=== PATIENT | male | born 1995 | race African-American/Black ===

== ENCOUNTER 2022-03-21 12:19 | Emergency (ER) | payer BC, MEDICAID, SELFPAY ==
[2022-03-21 12:33] VITALS: BP 131/66; PULSE 82; RESP 20; TEMP 36.4; O2SAT 100
[2022-03-21 13:02] LABS: Appearance Urine Clear (Clear); Bilirubin Urine Negative (Negative); Blood Urine Negative (Negative); Color Urine Yellow (Yellow); Glucose Urine UA Negative (Negative); Ketones Urine Negative (Negative); Leukocyte Esterase Ur Negative LEU/UL (Negative); Nitrate Urine Negative (Negative); Protein Urine Negative (Negative); Urobilinogen Urine 0.2 mg/dL (<2.0)
[2022-03-21 13:14] LABS: Add Urine Microscopic? NO
[2022-03-21] MEDS: cefTRIAXone 1 GM VIAL 0.5 GM IM (13:32)
--- NOTE | 2022-03-21 14:01 | ED.MALEGU ---
HPI - Male Genitourinary General Chief complaint: Urogenital-Male Stated complaint: pelvic pain Time Seen by Provider: 03/21/22 12:49 History of Present Illness HPI Narrative: Patient is a 26-year-old male who presents ER with discomfort at the tip of his penis. Ongoing for 3 days. He has had multiple sexual partners over the last couple weeks and has not worn protection. No discharge from tip of his penis. No new rashes. He is concerned he may have a sexual transmitted infection. Related Data Allergies Allergy/AdvReac Type Severity Reaction Status Date / Time No Known Allergies Allergy Verified 03/21/22 12:48 Review of Systems Constitutional: Constitutional: Denies chills and Denies fever(s) Gastrointestinal: Gastrointestinal: Denies abdominal pain, Denies diarrhea, Denies nausea and Denies vomiting Genitourinary: Genitourinary: Denies hematuria, Denies genital lesions, Reports dysuria, Denies penile discharge, Denies testicular pain and Denies urinary frequency PMFSH Past Medical History Medical History (Updated 03/21/22 @ 14:05 by eKvan Houser MD) Healthy adult male Surgical History Surgical History (Updated 03/21/22 @ 14:05 by Kevan Houser MD) No pertinent past surgical history Social History Social History (Updated 03/21/22 @ 14:05 by Kevan Houser MD) Smoking status: Never smoker Exam Narrative: GENERAL: Well-appearing, well-nourished, and in no acute distress. HEAD: Normocephalic, atraumatic. : Normal external genitalia without urethral discharge or lesions along the penile shaft. No inguinal hernia. Testicles nontender and without swelling. Normal scrotum EXTREMITIES: Normal range of motion. No edema. NEURO: Alert and oriented x3. PSYCH: Normal mood and affect. Course Course Emergency Course: Discussed treatment plan and patient verbalized understanding. Vital Signs Vital signs: Vital Signs Temperature 97.5 F L 03/21/22 12:33 Pulse Rate 82 03/21/22 12:33 Respiratory Rate 20 03/21/22 12:33 Blood Pressure 131/66 03/21/22 12:33 Pulse Oximetry 100 03/21/22 12:33 Oxygen Delivery Room Air 03/21/22 12:33 Temperature 97.5 F L 03/21/22 12:33 Pulse Rate 82 03/21/22 12:33 Respiratory Rate 20 03/21/22 12:33 Blood Pressure 131/66 03/21/22 12:33 Pulse Oximetry 100 03/21/22 12:33 Oxygen Delivery Room Air 03/21/22 12:33 MDM - Male Genitourinary Lab Data Labs: Lab Results 03/21/22 03/21/22 Range/Units 12:51 13:36 Urine Color Yellow (Yellow) Urine Appearance Clear (Clear) Urine pH 7.0 (5.0-9.0) Ur Specific [place] 1.020 (1.001-1.035) Urine Protein Negative (Negative) mg/dL Urine Glucose (UA) Negative (Negative) mg/dL Urine Ketones Negative (Negative) mg/dL Ur Blood (Man) Negative (Negative) Urine Nitrate Negative (Negative) Urine Bilirubin Negative (Negative) Urine Urobilinogen 0.2 (<2.0) mg/dL Leukocyte Esterase Rfl Negative (Negative) BATOOL/UL C.trachomatis RNA (TMA) Pending N.gonorrhoeae RNA (TMA) Pending Discharge Plan Discharge Clinical Impression: Exposure to STD Patient Disposition: Still a Patient Condition: Stable Instructions: Safe Sex Practices (ED) Additional Instructions: You are being treated presumptively treated for chlamydia and gonorrhea despite not having a positive test. Your test results should come back in the next couple of days and you can access them through your patient portal. Take the full course of antibiotics. Abstain from sex until completing the antibiotics. If you do find it necessary to have sex while on your antibiotics please wear a condom. Prescriptions: New doxycycline monohydrate 100 mg capsule 100 mg PO BID Qty: 14 0RF metronidazole 500 mg tablet 500 mg PO Q12H Qty: 14 0RF Follow-up/Referrals: PHYSICIAN,MAT REPAIRER [Primary Care Provider] - 1 Week
== END 2022-03-21 14:14 | disposition home or self-care (01) ==
PROVIDERS: Emergency Provider Emergency Medicine
DX: Z20.2 Contact with and (suspected) exposure to infections with a predominantly sexual mode of transmission (principal)
CPT/HCPCS: 81003; 87491; 87591; 96372; 99283; J0696

== ENCOUNTER 2022-07-29 18:48 | Emergency (ER) | payer BC, MEDICAID, SELFPAY ==
[2022-07-29 19:15] VITALS: BP 133/95; PULSE 62; RESP 18; TEMP 37.2; O2SAT 99
--- NOTE | 2022-07-29 20:24 | ED.MALEGU ---
HPI - Male Genitourinary General Chief complaint: Urogenital-Male Stated complaint: tingling to penis Time Seen by Provider: 07/29/22 20:16 History of Present Illness HPI Narrative: 27-year-old male presents to the emergency room for evaluation of tingling to his penis for 2 days. Patient states he has noticed bumps on his penis as well. Denies any dysuria. Patient does admit to frequent unprotected intercourse with multiple new partners. Related Data Allergies Allergy/AdvReac Type Severity Reaction Status Date / Time No Known Allergies Allergy Verified 03/21/22 12:48 Review of Systems Review of Systems: CONSTITUTIONAL: Denies fever, chills, or sweats. EYES: Denies visual changes, redness, or discharge. ENT: Denies rhinorrhea, congestion, sore throat, or otalgia. CARDIOVASCULAR: Denies chest pain, palpitations, or edema. RESPIRATORY: Denies cough or dyspnea. GASTROINTESTINAL: Denies abdominal pain, nausea, vomiting, or diarrhea. GENITOURINARY: Denies dysuria or hematuria. SKIN: Denies rash or itching. MUSCULOSKELETAL: Denies back pain, joint pain, or myalgia. NEUROLOGIC: Denies headache, numbness, dizziness, or weakness. PSYCHIATRIC: Denies anxiety or depression. PMFSH Past Medical History Medical History Healthy adult male Surgical History Surgical History No pertinent past surgical history Social History Social History Smoking status: Never smoker Exam Narrative: GENERAL: Well-appearing, well-nourished, no physical limitations, and in no acute distress. HEAD: Normocephalic, atraumatic. EYES: Conjunctivae normal, PERRLA and EOMI. CHEST: Clear to auscultation. No respiratory distress. No wheezes rales or rhonchi. HEART: Regular rate and rhythm. No murmur heard. Normal peripheral pulses. ABDOMEN: Soft, nontender, nondistended, normal active bowel sounds. : Normal external male exam. Bilateral inguinal lymphadenopathy. No testicular tenderness EXTREMITIES: Normal range of motion. No edema. No clubbing or cyanosis SKIN: Warm, dry, no rash. No noted wounds NEURO: No focal deficits. Alert and oriented x3. MAEW. CN's II-XI intact bilaterally, normal gait PSYCH: Cooperative. Normal mood and affect. Course Vital Signs Vital signs: Vital Signs Temperature 37.2 C 07/29/22 19:15 Pulse Rate 62 07/29/22 19:15 Respiratory Rate 18 07/29/22 19:15 Blood Pressure 133/95 H 07/29/22 19:15 Pulse Oximetry 99 07/29/22 19:15 Oxygen Delivery Room Air 07/29/22 19:15 Temperature 37.2 C 07/29/22 19:15 Pulse Rate 62 07/29/22 19:15 Respiratory Rate 18 07/29/22 19:15 Blood Pressure 133/95 H 07/29/22 19:15 Pulse Oximetry 99 07/29/22 19:15 Oxygen Delivery Room Air 07/29/22 19:15 MDM - Male Genitourinary Lab Data Labs: Lab Results 07/29/22 07/29/22 07/29/22 Range/Units 20:30 20:30 20:30 Urine Color Yellow (Yellow) Urine Appearance Clear (Clear) Urine pH 5.5 (5.0-9.0) Ur Specific [place] 1.020 (1.001-1.035) Urine Protein Negative (Negative) mg/dL Urine Glucose (UA) Negative (Negative) mg/dL Urine Ketones Negative (Negative) mg/dL Ur Blood (Man) Negative (Negative) Urine Nitrate Negative (Negative) Urine Bilirubin Negative (Negative) Urine Urobilinogen 0.2 (<2.0) mg/dL Leukocyte Esterase Rfl Negative (Negative) BATOOL/UL C.trachomatis RNA (TMA) Pending N.gonorrhoeae RNA (TMA) Pending T. vaginalis Amp RNA Pending Discharge Plan Discharge Clinical Impression: Inguinal lymphadenopathy, High risk sexual behavior Patient Disposition: Home, Self-Care Condition: Stable Instructions: Antibiotic Form Prescriptions: New doxycycline monohydrate 100 mg capsule 100 mg PO BID Qty: 14 0RF No Action doxycycl
[2022-07-29 20:44] LABS: Add Urine Microscopic? NO; Appearance Urine Clear (Clear); Bilirubin Urine Negative (Negative); Blood Urine Negative (Negative); Color Urine Yellow (Yellow); Glucose Urine UA Negative (Negative); Ketones Urine Negative (Negative); Leukocyte Esterase Ur Negative LEU/UL (Negative); Nitrate Urine Negative (Negative); Protein Urine Negative (Negative); Urobilinogen Urine 0.2 mg/dL (<2.0); pH Urine 5.5 (5.0-9.0)
[2022-07-29 20:46] LABS: Mucus Urine Rare /lpf; RBC Urine 0-2 /hpf (0-2); WBC Urine 0-3 /hpf
[2022-07-29] MEDS: metroNIDAZOLE 250 MG TABLET 2000 MG PO (20:59)
[2022-07-29] MEDS: LIDOCAINE HCL 1% LOCAL INJ 20 ML VIAL (20:59)
[2022-07-29] MEDS: cefTRIAXone 1 GM VIAL 0.5 GM IM (20:59)
== END 2022-07-29 21:18 | disposition home or self-care (01) ==
LOC: ANHED 21:10
PROVIDERS: Emergency Provider Nurse Practitioner Family
DX: R59.1 Generalized enlarged lymph nodes (principal); Z72.51 High risk heterosexual behavior
CPT/HCPCS: 81003; 87491; 87591; 87661; 96372; 99283; A9270; J0696

== ENCOUNTER 2022-10-20 12:44 | Emergency (ER) | payer OTHER, SELFPAY ==
[2022-10-20 12:45] VITALS: BP 140/78; PULSE 64; RESP 18; TEMP 36.3; O2SAT 100
--- NOTE | 2022-10-20 13:02 | ED.DENTAL ---
HPI - Dental/Oral General Chief complaint: Dental/Oral Stated complaint: absess lower left mouth Time Seen by Provider: 10/20/22 12:54 History of Present Illness HPI Narrative: 27-year-old male reports for evaluation of left lower tooth pain for the past week. Patient reports history of multiple caries and problems with his teeth. He does not a dentist. States he was put on an antibiotic a few weeks ago for the same tooth by his primary care provider. He is unsure what antibiotic he was on. States he skips multiple doses of the antibiotic. Denies sore throat, difficulty swallowing, dyspnea, fever, bodyaches, chills. Related Data Allergies Allergy/AdvReac Type Severity Reaction Status Date / Time No Known Allergies Allergy Verified 10/20/22 12:48 Review of Systems Review of Systems: CONSTITUTIONAL: Denies fever, chills EYES: Denies visual changes, redness, or discharge. ENT: Denies rhinorrhea, congestion, sore throat, or otalgia. CARDIOVASCULAR: Denies chest pain, palpitations, or edema. RESPIRATORY: Denies cough or dyspnea. GASTROINTESTINAL: Denies abdominal pain, nausea, vomiting, or diarrhea. GENITOURINARY: Denies dysuria or hematuria. SKIN: Denies rash or itching. MUSCULOSKELETAL: Denies back pain, joint pain, or myalgia. NEUROLOGIC: Denies headache, numbness, dizziness, or weakness. PSYCHIATRIC: Denies anxiety or depression. PMFSH Past Medical History Medical History Healthy adult male Surgical History Surgical History No pertinent past surgical history Social History Social History Smoking status: Never smoker Exam Narrative: GENERAL: Well-appearing, well-nourished, and in no acute distress. Patient resting comfortably in exam chair. He is pleasant conversational. Tolerating secretions. HEAD: Normocephalic, atraumatic. ENT: Multiple caries throughout dentition. Tenderness and caries to tooth #18 and 19 with area of induration over the gumline. 2 cm area of induration overlying the left lower mandible. No areas of fluctuation. Floor of mouth is soft without crepitus. Patient tolerating secretions, no difficulty swallowing. Nares clear, no rhinorrhea or epistaxis. Mucous membranes moist. Oropharynx without tonsillar hypertrophy exudate or other lesions. Bilateral TMs pearly odell nonbulging NECK: Supple. No submandibular swelling CHEST: Clear to auscultation. No respiratory distress. No wheezes rales or rhonchi HEART: Regular rate and rhythm. No murmur heard. Normal peripheral pulses. EXTREMITIES: Normal range of motion. No edema. SKIN: Warm, dry, no rash. NEURO: No focal deficits. Alert and oriented x3. PSYCH: Normal mood and affect. Course Vital Signs Vital signs: Vital Signs Temperature 97.4 F L 10/20/22 12:45 Pulse Rate 64 10/20/22 12:45 Respiratory Rate 18 10/20/22 12:45 Blood Pressure 140/78 10/20/22 12:45 Pulse Oximetry 100 10/20/22 12:45 Oxygen Delivery Room Air 10/20/22 12:45 Temperature 97.4 F L 10/20/22 12:45 Pulse Rate 64 10/20/22 12:45 Respiratory Rate 18 10/20/22 12:45 Blood Pressure 140/78 10/20/22 12:45 Pulse Oximetry 100 10/20/22 12:45 Oxygen Delivery Room Air 10/20/22 12:45 MDM - Dental/Oral MDM Narrative Medical decision making narrative: 27-year-old male reports for left mandibular tooth pain for the past week. Exam reveals multiple caries, tenderness over tooth #18 and 19 with induration to the gumline and 2 cm area of induration over the left lower mandible. Patient afebrile. Tolerating secretions. No difficulty breathing or swallowing. No submandibular swelling. Floor of mouth is soft without crepitus. Plan to treat outpatient with Augmentin. Advised Tylenol and ibuprofen as needed for pain. Encouraged close follow-up within the following week wi
[2022-10-20] MEDS: HYDROcodone/acetaminophen (*CRX) 5-325 MG TABLET 1 TAB PO (13:19)
== END 2022-10-20 13:28 | disposition home or self-care (01) ==
LOC: ANHED 13:24
PROVIDERS: Emergency Provider Physician Assistant
DX: K02.9 Dental caries, unspecified (principal)
CPT/HCPCS: 99283; A9270

== ENCOUNTER 2024-06-30 16:35 | Emergency (ER) | payer OTHER, SELFPAY | END 2024-06-30 19:19 | disposition left against medical advice (07) | DX: K08.89 Other specified disorders of teeth and supporting structures (principal) | CPT/HCPCS: 99199 ==